=== PATIENT | male | born 1960 | race Caucasian/White ===

== ENCOUNTER 2016-12-09 10:05 | Emergency (ER) | payer MEDICAID ==
[~2016-12-09] VITALS: Ht 160 cm; Wt 72.6 kg
--- NOTE | 2016-12-09 10:07 | NUR ---
PT BIB FROM THE STREETS TO ER BED 12. C/O SCROTAL PAIN. APPEARS SWOLLEN. STATES HX OF HERNIA. STATES BEEN HURTING X 2 YEARS. AWAITING MD TSAI.
--- NOTE | 2016-12-09 10:22 | NUR ---
dr case at bedside for eval.
--- NOTE | 2016-12-09 10:32 | NUR ---
u/s tech at bedside for scrotal ultrasound.
[2016-12-09 11:04] LABS: BASOPHILS # (AUTO) 0.1 /CMM (0.0-0.2); BASOPHILS % (AUTO) 1.6 % (0.0-2.0); EOSINOPHILS # (AUTO) 0.1 /CMM (0.0-0.7); EOSINOPHILS % (AUTO) 1.3 % (0.0-6.0); HEMATOCRIT 31 % (39-51); HEMOGLOBIN 10.2 g/dL (13.5-17.5); LYMPHOCYTES # (AUTO) 1.3 /CMM (0.8-4.8); LYMPHOCYTES % (AUTO) 31.4 % (20.0-44.0); MEAN CORPUSCULAR HEMOGLOBIN 27 PG (26.0-33.0); MEAN CORPUSCULAR HGB CONC 33 g/dl (31.0-36.0); MEAN CORPUSCULAR VOLUME 80 fL (80-96); MONOCYTES # (AUTO) 0.2 /CMM (0.1-1.30); MONOCYTES % (AUTO) 5.8 % (2.0-12.0); NEUTROPHILS # (AUTO) 2.4 /CMM (1.8-8.9); NEUTROPHILS % (AUTO) 59.9 % (43.0-81.0); PLATELET COUNT (AUTO) 118 /CMM (150-450); RDW COEFFICIENT OF VARIATION 23.2 (11.5-15.0); RED BLOOD CELL COUNT(AUTO) 3.83 MIL/uL (4.5-6.0); WHITE BLOOD COUNT (AUTO) 4.1 K/uL (4.3-11.0)
[2016-12-09 11:14] LABS: CALCIUM, SERUM 7.2 mg/dL (8.5-10.1); CREATININE 0.7 mg/dL (0.6-1.3); POTASSIUM 3.9 mmol/L (3.5-5.1)
[2016-12-09] MEDS ORDERED: INSULIN REGULAR, HUMAN 100 UNIT/ML 10 ML VIAL ONE (11:54)
--- NOTE | 2016-12-09 11:59 | NUR ---
REGULAR INSULIN DOSE VERIFIED WITH KAUSHAL SALDIVAR
[2016-12-09] MEDS ORDERED: INSULIN REGULAR, HUMAN 100 UNIT/ML 10 ML VIAL SQ ONE (12:00)
--- NOTE | 2016-12-09 12:08 | NUR ---
DPatient discharged to home in stable condition. Written and verbal after care instructions given. Patient verbalizes understanding of instruction. AMBULATORY WITH STEADY GAIT.
[2016-12-09 12:09] VITALS: BP 142/102
== END 2016-12-09 12:09 | disposition home or self-care (01) ==
LOC: ER 10:07
DX: N50.82 Scrotal pain (principal); I10 Essential (primary) hypertension; E11.9 Type 2 diabetes mellitus without complications; N40.0 Benign prostatic hyperplasia without lower urinary tract symptoms
CPT/HCPCS: 36415; 76870; 80048; 82962; 85025; 96372; 99285; A4606; J1815; Z7610

== ENCOUNTER 2017-09-08 13:56 | Emergency (ER) | payer MEDICAID ==
[~2017-09-08] VITALS: Ht 170.2 cm; Wt 77.1 kg
--- NOTE | 2017-09-08 14:00 | NUR ---
BBRA FROM THE STREET FOR ABDOMINAL PAIN, NAD NOTED, VSS, RESP EVEN AND UNLABORED, WAITING FOR MD TSAI.
[2017-09-08 14:41] LABS: BASOPHILS # (AUTO) 0.1 /CMM (0.0-0.2); BASOPHILS % (AUTO) 1.2 % (0.0-2.0); EOSINOPHILS # (AUTO) 0.1 /CMM (0.0-0.7); EOSINOPHILS % (AUTO) 1.4 % (0.0-6.0); HEMATOCRIT 34 % (39-51); HEMOGLOBIN 11.2 g/dL (13.5-17.5); LYMPHOCYTES # (AUTO) 0.6 /CMM (0.8-4.8); LYMPHOCYTES % (AUTO) 15.1 % (20.0-44.0); MEAN CORPUSCULAR HEMOGLOBIN 27 PG (26.0-33.0); MEAN CORPUSCULAR HGB CONC 33 g/dl (31.0-36.0); MEAN CORPUSCULAR VOLUME 82 fL (80-96); MONOCYTES # (AUTO) 0.3 /CMM (0.1-1.30); MONOCYTES % (AUTO) 6.2 % (2.0-12.0); NEUTROPHILS # (AUTO) 3.1 /CMM (1.8-8.9); NEUTROPHILS % (AUTO) 76.1 % (43.0-81.0); PLATELET COUNT (AUTO) 94 /CMM (150-450); RDW COEFFICIENT OF VARIATION 19.9 (11.5-15.0); RED BLOOD CELL COUNT(AUTO) 4.12 MIL/uL (4.5-6.0); WHITE BLOOD COUNT (AUTO) 4.2 K/uL (4.3-11.0)
[2017-09-08 14:54] LABS: INR 1.18 (0.87-1.13); PROTHROMBIN TIME 12.3 SECS (9.5-12.7)
[2017-09-08 14:55] LABS: CALCIUM, SERUM 7.2 mg/dL (8.5-10.1); CREATININE 0.8 mg/dL (0.6-1.3)
[2017-09-08 14:56] LABS: ALBUMIN 1.9 g/dL (3.4-5.0)
[2017-09-08 14:58] LABS: BILIRUBIN,TOTAL 1.6 mg/dL (0.2-1.0)
[2017-09-08 15:14] LABS: BILIRUBIN,DIRECT 0.9 mg/dL (0.0-0.2)
[2017-09-08 15:15] LABS: TOTAL PROTEIN, SERUM 7.3 g/dL (6.4-8.2)
[2017-09-08 15:19] LABS: LYMPHOCYTES % (MANUAL) 10 % (16-48); MONOCYTES % (MANUAL) 8 % (0-11.0); NEUTROPHILS % (MANUAL) 82 (42-76)
--- NOTE | 2017-09-08 16:29 | NUR ---
ISABEL received a call from SAMINA Gomez requesting a social service consult for homelessness. SW met with pt. bedside. Pt. was resting in bed during the assessment. SW gave pt. list of winter shelters along with other homeless resources. Pt. was appreciative. No other social service needs are required at this time.
[2017-09-08 16:56] VITALS: BP 140/78
== END 2017-09-08 16:58 | disposition home or self-care (01) ==
LOC: ER 13:59
DX: R18.8 Other ascites (principal); D61.818 Other pancytopenia; F10.129 Alcohol abuse with intoxication, unspecified; I10 Essential (primary) hypertension; N40.0 Benign prostatic hyperplasia without lower urinary tract symptoms; E10.9 Type 1 diabetes mellitus without complications; Z91.14 Patient's other noncompliance with medication regimen
CPT/HCPCS: 36415; 49083; 80048; 80076; 83690; 85025; 85730; 99285; A4606; G0480; Z7610; 76942-TC

== ENCOUNTER 2017-12-22 13:47 | Inpatient (IN) | payer MEDICAID ==
[~2017-12-22] VITALS: Ht 165.1 cm; Wt 68.0 kg
--- NOTE | 2017-12-22 13:50 | NUR ---
BBIBRA FROM HOME DT ABDOMINAL DISCOMFORT, 8, NON RADIATING, PATIENT'S ABDOMEN NOTED DISTENDED AND TENDERED. PATIENT IS AWAKE AND ALERT. NO NAUSEA NOR VOMITTING. SKIN IS WARM TO TOUCHA AND NON DIAPHORETIC. PATIENT IS AFEBRILE. VSS
[2017-12-22 14:13] LABS: BASOPHILS % (AUTO) 0.1 % (0.0-2.0); HEMATOCRIT 31 % (39-51); HEMOGLOBIN 10.3 g/dL (13.5-17.5); LYMPHOCYTES # (AUTO) 0.4 /CMM (0.8-4.8); LYMPHOCYTES % (AUTO) 4.4 % (20.0-44.0); MEAN CORPUSCULAR HGB CONC 34 g/dl (31.0-36.0); MEAN CORPUSCULAR VOLUME 83 fL (80-96); MONOCYTES # (AUTO) 0.6 /CMM (0.1-1.30); MONOCYTES % (AUTO) 7.1 % (2.0-12.0); NEUTROPHILS # (AUTO) 7.4 /CMM (1.8-8.9); NEUTROPHILS % (AUTO) 88.4 % (43.0-81.0); PLATELET COUNT (AUTO) 67 /CMM (150-450); RDW COEFFICIENT OF VARIATION 21.1 (11.5-15.0); WHITE BLOOD COUNT (AUTO) 8.4 K/uL (4.3-11.0)
[2017-12-22 14:20] LABS: CARBON DIOXIDE 28 mmol/L (21-32); CHLORIDE 101 mmol/L (98-107); CREATININE 1.2 mg/dL (0.6-1.3); GLUCOSE 199 mg/dL (74-106); POTASSIUM 3.9 mmol/L (3.5-5.1); SODIUM SERUM 136 mmol/L (136-145); UREA NITROGEN, BLOOD 18 mg/dL (7-18)
[2017-12-22 14:24] LABS: INR 1.28 (0.85-1.15)
[2017-12-22 14:26] LABS: ALANINE AMINOTRANSFERASE 38 U/L (12-78); ALBUMIN 2.1 g/dL (3.4-5.0); ALKALINE PHOSPHATASE 355 U/L (46-116); ASPARTATE AMINOTRANSFERASE 70 U/L (15-37); BILIRUBIN,DIRECT 1.2 mg/dL (0.0-0.2); BILIRUBIN,TOTAL 2.7 mg/dL (0.2-1.0); TOTAL PROTEIN, SERUM 7.9 g/dL (6.4-8.2)
[2017-12-22 14:26] LABS: APPEARANCE,URINE Slightly Cloudy (CLEAR); BILIRUBIN,URINE LARGE (NEGATIVE); BLOOD, URINE Large Ery/uL (NEGATIVE); COLOR,URINE Amber (YELLOW); KETONES,URINE 15 (NEGATIVE); LEUKOCYTE ESTERASE ,URINE Negative (NEGATIVE); NITRITE, URINE Negative (NEGATIVE); PROTEIN,URINE >=300 mg/dl (NEGATIVE); UGLUCOSE 100 MG/DL mg/dL (NEGATIVE); UROBILINOGEN,URINE >=8.0 EU/dL (0.2)
[2017-12-22 14:27] LABS: ALCOHOL, BLOOD < 3 mg/dL (0-0)
[2017-12-22 14:38] LABS: SERUM AMMONIA 50 umol/L (11-32)
[2017-12-22 14:38] LABS: BACTERIA,URINE Few /HPF (None Seen); RBC,URINE 21-50 /HPF (0-2); SQUAMOUS EPITHELIAL CELL,UR Few /HPF (None Seen); WBC,URINE 0-2 /HPF (0-3)
[2017-12-22 14:51] LABS: BAND % (MANUAL) 9 % (0.0-5.0); LYMPHOCYTES % (MANUAL) 4 % (16-48); METAMYELOCYTES % 1 % (0-0); MONOCYTES % (MANUAL) 6 % (0-11.0); NEUTROPHILS % (MANUAL) 80 (42-76)
[2017-12-22] MEDS ORDERED: ACETAMINOPHEN 325 MG TABLET ONE (14:54)
[2017-12-22] MEDS ORDERED: ACETAMINOPHEN 650 MG/20.3 ML UDC PO ONE (15:00)
--- NOTE | 2017-12-22 15:02 | NUR ---
NOTIFIED ER DR. SCHMIDT NO RADIOLOGIST ON SITE, RADIOLOGIST HAS LEFT TO [facility] FOR OTHER PENDING PROCEDURES
[2017-12-22 15:22] LABS: TROPONIN I < 0.017 ng/mL (0.00-0.056)
[2017-12-22] MEDS ORDERED: METF-440 PO (16:00)
[2017-12-22] MEDS ORDERED: GLIP5TAB13 PO (16:00)
[2017-12-22] MEDS ORDERED: INSU100V7 SQ (16:00)
--- NOTE | 2017-12-22 16:00 | NUR ---
PAGED ULTRASOUND STATED THEY ALREADY KNOW OF ORDERS
--- NOTE | 2017-12-22 16:05 | NUR ---
AND TIMBER SIZER OPERATOR BEDSIDE FOR PARACENTESIS.
--- NOTE | 2017-12-22 16:13 | NUR ---
Patient is resting comfortably in bed with eyes closed. Easily aroused. VSS
--- NOTE | 2017-12-22 16:24 | NUR ---
ABDOMINAL PARACENTESIS FLUID COLLECTED AND CALLED LAB FOR PICKUP
[2017-12-22] MEDS ORDERED: CEFEPIME 1 GM in IV D5W 50 ML IV ONE (16:30)
[2017-12-22] MEDS ORDERED: VANCOMYCIN 1 GM in IV D5W 250 ML IV ONE (16:30)
--- NOTE | 2017-12-22 16:30 | NUR ---
LAB STATES STILL RUNNING LACTIC TEST
--- NOTE | 2017-12-22 16:37 | NUR ---
CALLED [facility]
[2017-12-22] MEDS ORDERED: CEFEPIME 1 GM VIAL ONE (16:45)
[2017-12-22] MEDS ORDERED: VANCOMYCIN 1 GM VIAL ONE (16:45)
--- NOTE | 2017-12-22 17:00 | NUR ---
PARACENTESIS PERFORMED BY . 1000ML OF FLUIDS WERE REMOVED FROM THE ABD CAVITY. MD MADE AWARE. PARACENTESIS DC'ED PER MD'S ORDERS. NO S/S OF DISCOMOFRT NOTED IN PT.
--- NOTE | 2017-12-22 17:13 | NUR ---
ADMIT TO BED 313-1
[2017-12-22] MEDS ORDERED: IV NS 0.9% 1,000 ML BAG IV ONE (17:30)
--- NOTE | 2017-12-22 17:37 | NUR ---
Janusz addison in [facility] - 12/22/17 at 1738 by CHRISTI REPORT GIVEN TO MIL MCNAMARA FOR JESUS. PT GOING TO ROOM 311-1
--- NOTE | 2017-12-22 17:39 | NUR ---
REPORT GIVEN TO FOOD INSPECTOR LEA FOR JESUS. PT GOING TO ROOM 311-1
--- NOTE | 2017-12-22 19:32 | NUR ---
WIRELINE FIELD OPERATOR OPENING NOTES RECEIVED BEDSIDE ENDORSEMENT FROM DAY SHIFT NURSE. PT IS SITTING UPRIGHT, AWAKE AND RESPONSIVE.RESPIRATIONS ARE EVEN AND UNLABORED, NOT IN ANY ACUTE DISTRESS NOTED. DENIES ANY PAIN AT THIS TIME. IV SITE INTACT, NO INFILTRATION NOTED. DRESSING KEPT CLEAN AND DRY. SAFETY MEASURES ARE IN PLACE. INSTRUCTED PT TO USE CALL LIGHT WHEN ASSISTANCE IS NEEDED, CALL LIGHT IS LEFT WITHIN REACH. WILL CONTINUE TO MONITOR THROUGHOUT SHIFT.
[2017-12-22 20:00] VITALS: BP 117/76
[2017-12-22] MEDS ORDERED: ACETAMINOPHEN 325 MG TABLET PO PRN (22:30)
[2017-12-22] MEDS ORDERED: ZOLPIDEM TARTRATE 5 MG TABLET PO PRN (22:30)
[2017-12-22] MEDS ORDERED: ONDANSETRON HCL/PF 4 MG/2 ML VIAL IVP PRN (22:30)
[2017-12-22] MEDS ORDERED: HYDROCODONE/APAP 5/325MG 1 EACH TABLET PO PRN (22:30)
[2017-12-22] MEDS ORDERED: MAGNESIUM HYDROXIDE 30 ML UDC PO PRN (22:30)
[2017-12-22] MEDS ORDERED: DEXTROSE 50%-WATER 50 ML DISP.SYRIN IV PRN (22:30)
[2017-12-22] MEDS ORDERED: PIPERACILLIN /TAZOBACTAM 3.375 G VIAL IV ONE (22:57)
[2017-12-22] MEDS: PIPERACILLIN /TAZOBACTAM 3.375 G in IV D5W 100 ML IV SCH (23:04)
[2017-12-23] VITALS: BP 120/88
[2017-12-23] MEDS ORDERED: VANCOMYCIN 1 GM VIAL ONE (00:37)
[2017-12-23] MEDS ORDERED: VANCOMYCIN 1 GM in IV D5W 250 ML IV ONE (01:00)
[2017-12-23 04:00] VITALS: BP 119/73
[2017-12-23] MEDS ORDERED: PIPERACILLIN /TAZOBACTAM 3.375 G VIAL IV ONE (05:27)
[2017-12-23] MEDS: PIPERACILLIN /TAZOBACTAM 3.375 G in IV D5W 100 ML IV SCH (05:42)
[2017-12-23] MEDS: BLOOD SUGAR DIAGNOSTIC 1 EACH STRIP IN SCH ×4 (06:40→21:43)
[2017-12-23] MEDS: INSULIN REGULAR, HUMAN 100 UNIT/ML 3 ML VIAL SQ PRN ×4 (06:40→21:44)
--- NOTE | 2017-12-23 06:49 | NUR ---
TRAINING INTERN CLOSING NOTES ALL DUE MEDS GIVEN, NEEDS MET AND RENDERED. AWAKE AND RESPONSIVE. RESPIRATIONS ARE EVEN AND UNLABORED, NOT IN ANY ACUTE DISTRESS NOTED. DENIES ANY PAIN AT THIS TIME. NO C/O SOB, N/V. IV SITE INTACT, NO INFILTRATION NOTED. DRESSING KEPT CLEAN AND DRY. SAFETY MEASURES ARE IN PLACE. REMINDED PT TO USE CALL LIGHT WHEN ASSISTANCE IS NEEDED, CALL LIGHT IS LEFT WITHIN REACH. WILL ENDORSE TO NEXT SHIFT FOR CONTINUITY OF CARE.
[2017-12-23 07:43] LABS: CALCIUM, SERUM 6.7 mg/dL (8.5-10.1); CREATININE 0.8 mg/dL (0.6-1.3); MAGNESIUM 1.4 mg/dL (1.8-2.4); PHOSPHORUS 3.6 mg/dL (2.5-4.9); POTASSIUM 3.4 mmol/L (3.5-5.1)
--- NOTE | 2017-12-23 07:58 | NUR ---
DOCUMENTED PREVIOUS SHIFT'S MEDICATIONS NON-ADMINISTERED TO RID OF RED PASSED DUE REMINDERS.
--- NOTE | 2017-12-23 07:59 | NUR ---
HEMODIALYSIS RN OPENING NOTE RECEIVED BEDSIDE SBAR REPORT OF ON THE PATIENT. PATIENT IS A/O X4, ASLEEP EASILY AWAKEN IN BED. CHEST IS RISING EQUALLY, BILATERALLY. DENIES ANY PAIN AT THIS TIME. NO C/O SOB, N/V. IV SITE INTACT, NO INFILTRATION NOTED. ABDOMINAL DRESSING CLEAN AND DRY. PATIENT IS IN BED. BED IS LOCKED IN LOWEST POSITION, SIDE RAILS UP X3, BED ALARM IS ON. CALL LIGHT WITHIN REACH. PATIENT EDUCATED TO CALL FOR ASSISTANCE USING THE CALL LIGHT AND VERBALIZED UNDERSTANDING. WILL CONTINUE TO ASSESS/MONITOR THROUGHOUT THE SHIFT.
[2017-12-23 08:00] VITALS: BP 114/77
[2017-12-23] MEDS ORDERED: FEE PK DOSING 1 MIN EA MC ONE (09:14)
[2017-12-23] MEDS: VANCOMYCIN 1 GM in IV D5W 250 ML IV SCH ×2 (09:55→16:55)
--- NOTE | 2017-12-23 10:15 | NUR ---
RIGHT FOREARM GAUGE 22 PERIPHERAL IV CATHETER STARTED FOR MAGNESIUM ADMINISTRATION. PATIENT TOLERATED PROCEDURE WELL.
[2017-12-23] MEDS: Magnesium 1GM/D5W 100ML PREMIX 100 ML IV SCH ×4 (10:58→15:16)
[2017-12-23] MEDS ORDERED: POTASSIUM CHLORIDE 20 MEQ TAB.PRT.SR PO SCH ×2 (11:00→11:30)
[2017-12-23] MEDS: PIPERACILLIN /TAZOBACTAM 4.5 G in IV D5W 50 ML IV SCH ×2 (12:47→18:40)
[2017-12-23] MEDS: Z GUARD REMEDY 2 OZ OINT TP PRN (13:02)
[2017-12-23 13:56] LABS: BASOPHILS % (AUTO) 0.5 % (0.0-2.0); EOSINOPHILS % (AUTO) 1.1 % (0.0-6.0); HEMATOCRIT 27 % (39-51); LYMPHOCYTES # (AUTO) 0.7 /CMM (0.8-4.8); LYMPHOCYTES % (AUTO) 14.7 % (20.0-44.0); MEAN CORPUSCULAR HGB CONC 33 g/dl (31.0-36.0); MEAN CORPUSCULAR VOLUME 84 fL (80-96); MONOCYTES # (AUTO) 0.4 /CMM (0.1-1.30); MONOCYTES % (AUTO) 9.4 % (2.0-12.0); NEUTROPHILS # (AUTO) 3.4 /CMM (1.8-8.9); NEUTROPHILS % (AUTO) 74.3 % (43.0-81.0); RDW COEFFICIENT OF VARIATION 20.9 (11.5-15.0); RED BLOOD CELL COUNT(AUTO) 3.28 MIL/uL (4.5-6.0); WHITE BLOOD COUNT (AUTO) 4.5 K/uL (4.3-11.0)
[2017-12-23 14:14] LABS: PLATELET COUNT (AUTO) 45 /CMM (150-450)
[2017-12-23 14:17] LABS: EOSINOPHILS % (MANUAL) 2 % (0-4); LYMPHOCYTES % (MANUAL) 12 % (16-48); MONOCYTES % (MANUAL) 7 % (0-11.0); NEUTROPHILS % (MANUAL) 79 (42-76)
--- NOTE | 2017-12-23 15:00 | NUR ---
Ha BARRAZA INFORMED OF CRITICALLY LOW PLATELET NUMBER OF 45. NO NEW ORDERS RECEIVED.
[2017-12-23 16:00] VITALS: BP 134/60
--- NOTE | 2017-12-23 17:01 | NUR ---
ABDOMINAL DRESSING CHANGED. OLD DRESSING SATURATED IN CLEAR, YELLOW FLUID. PATIENT TOLERATED PROCEDURE WELL.
[2017-12-23] MEDS: PANTOPRAZOLE 40 MG VIAL IV SCH (18:40)
[2017-12-23 18:53] LABS: IRON, SERUM 19 ug/dl (50-175); TOTAL IRON BINDING CAPACITY 195 ug/dl (250-450)
--- NOTE | 2017-12-23 19:11 | NUR ---
PRIME BROKER OPENING NOTES RECEIVED BEDSIDE ENDORSEMENT FROM DIRECTOR OF EXHIBIT DEVELOPMENT NURSE. PATIENT IS A/O X3, AWAKE AND RESPONSIVE.RESPIRATIONS ARE EVEN AND UNLABORED, NOT IN ANY ACUTE DISTRESS NOTED. DENIES ANY PAIN AT THIS TIME. IV SITE INTACT, NO INFILTRATION NOTED. DRESSING KEPT CLEAN AND DRY. SAFETY MEASURES ARE IN PLACE. INSTRUCTED PT TO USE CALL LIGHT WHEN ASSISTANCE IS NEEDED, CALL LIGHT IS LEFT WITHIN REACH. WILL CONTINUE TO MONITOR THROUGHOUT SHIFT.
--- NOTE | 2017-12-23 19:12 | NUR ---
MS RN CLOSING NOTE NO SIGNIFICANT CHANGES THROUGHOUT THE SHIFT. DENIES PAIN DISCOMFORT AT THIS TIME. PATIENT IS IN BED, AWAKE AND RESPONSIVE WATCHING TV. BED IS LOCKED IN LOWEST POSITION, SIDE RAILS UP X2. CALL LIGHT WITHIN REACH. WILL ENDORSE TO THE MACHINE STITCHER NURSE FOR JESUS.
--- NOTE | 2017-12-23 19:15 | NUR ---
RN OPENING NOTES RECEIVED PT AWAKE IN BED, ALERT AND ORIENTED X 3, VERBALLY RESPONSIVE, IN NO ACUTE DISTRESS, NO SOB, BREATHING EVEN AND UNLABORED, DENIES ANY PAIN. ALL PATIENT'S NEEDS ATTENDED TO AT THIS TIME, PLACED BED IN LOW POSITION AND LOCKED IN PLACE. CALL LIGHT PLACED WITHIN EASY REACH. WILL CONTINUE TO MONITOR.
[2017-12-23 20:00] VITALS: BP 121/83
[2017-12-23] MEDS: LEVOFLOXACIN (500MG) 500 MG TABLET PO SCH (21:08)
[2017-12-24] MEDS: PIPERACILLIN /TAZOBACTAM 4.5 G in IV D5W 50 ML IV SCH ×4 (00:05→17:24)
[2017-12-24] MEDS: VANCOMYCIN 1 GM in IV D5W 250 ML IV SCH ×2 (01:37→09:03)
[2017-12-24] MEDS: BLOOD SUGAR DIAGNOSTIC 1 EACH STRIP IN SCH ×4 (06:09→21:52)
[2017-12-24] MEDS: INSULIN REGULAR, HUMAN 100 UNIT/ML 3 ML VIAL SQ PRN ×4 (06:11→21:56)
--- NOTE | 2017-12-24 06:56 | NUR ---
RN CLOSING NOTES PATIENT ASLEEP IN BED BUT EASILY AROUSABLE, NOTED WITH NO SOB, IN NO ACUTE DISTRESS, KEPT PT SAFE AND DRY, CLEAN AND COMFORTABLE THROUGHOUT THE SHIFT. PLACED BED IN LOW POSITION AND LOCKED IN PLACE. CALL LIGHT PLACED WITHIN EASY REACH. WILL ENDORSE TO AM SHIFT NURSE FOR CONTINUITY OF CARE.
--- NOTE | 2017-12-24 07:04 | NUR ---
PATIENT PULLED THE IV CATHETER. NEW 22 G IV CATHETER PLACED IN THE LEFT HAND. TOLERATED PROCEDURE WELL.
[2017-12-24 08:00] VITALS: BP 116/82
[2017-12-24 08:44] LABS: CALCIUM, SERUM 6.9 mg/dL (8.5-10.1); POTASSIUM 3.7 mmol/L (3.5-5.1)
[2017-12-24] MEDS: LACTULOSE 10 G/15 ML UDC (PYXIS) PO SCH ×2 (09:03→17:36)
[2017-12-24] MEDS: Z GUARD REMEDY 2 OZ OINT TP PRN (12:30)
--- NOTE | 2017-12-24 13:12 | NUR ---
DR SOUTH AT THE BEDSIDE. REPORTED CRITICALLY LOW PLATELET LEVELS. NO NEW ORDERS RECEIVED AT THIS TIME.
[2017-12-24 13:47] LABS: BASOPHILS % (AUTO) 0.9 % (0.0-2.0); EOSINOPHILS % (AUTO) 2.1 % (0.0-6.0); HEMATOCRIT 27 % (39-51); HEMOGLOBIN 8.9 g/dL (13.5-17.5); LYMPHOCYTES # (AUTO) 0.7 /CMM (0.8-4.8); LYMPHOCYTES % (AUTO) 17.5 % (20.0-44.0); MEAN CORPUSCULAR HGB CONC 33 g/dl (31.0-36.0); MEAN CORPUSCULAR VOLUME 84 fL (80-96); MONOCYTES # (AUTO) 0.6 /CMM (0.1-1.30); MONOCYTES % (AUTO) 15.3 % (2.0-12.0); NEUTROPHILS # (AUTO) 2.5 /CMM (1.8-8.9); NEUTROPHILS % (AUTO) 64.2 % (43.0-81.0); RDW COEFFICIENT OF VARIATION 20.8 (11.5-15.0); RED BLOOD CELL COUNT(AUTO) 3.25 MIL/uL (4.5-6.0)
--- NOTE | 2017-12-24 13:49 | NUR ---
attempted to contact patients nurse who is on break in regards to us guided paracentesis. will re-attempt to contact nurse
[2017-12-24 13:54] LABS: PLATELET COUNT (AUTO) 42 /CMM (150-450)
--- NOTE | 2017-12-24 14:19 | NUR ---
INFORMED YARIEL JEROME, RADIOLOGIST NOT ON SITE WILL RETURN TOMORROW. AT THIS TIME CONSENT IS NOT SIGNED AND PLATELET COUNT IS LOW. MUST GET THE FOLLOWING IN ORDER TO PERFORM PARACENTESIS
[2017-12-24 14:22] LABS: EOSINOPHILS % (MANUAL) 1 % (0-4); LYMPHOCYTES % (MANUAL) 15 % (16-48); MONOCYTES % (MANUAL) 9 % (0-11.0); NEUTROPHILS % (MANUAL) 75 (42-76)
--- NOTE | 2017-12-24 14:22 | NUR ---
SPOKE TO DEREK GUPTA. REPORTED PATIENT'S PLATELETS ARE CRITICALLY LOW. DEREK STATED SHE WILL ORDER PLATELETS TO BE ADMINISTERED EARLY IN THE AM BEFORE PARACENTESES
[2017-12-24] MEDS ORDERED: ALBUMIN 25% 12.5 GM/50 ML BOTTLE IV ONE (14:30)
[2017-12-24] MEDS ORDERED: ALBUMIN 25% 25 GM in PREMIX 1 EA IV SCH (15:00)
[2017-12-24 16:00] VITALS: BP 119/84
[2017-12-24] MEDS ORDERED: VANCOMYCIN 0.75 GM in IV D5W 250 ML IV SCH (17:00)
[2017-12-24] MEDS: PANTOPRAZOLE 40 MG VIAL IV SCH (17:27)
--- NOTE | 2017-12-24 19:30 | NUR ---
MS RN Opening Notes Received pt in bed watching tv with HOB elevated. alert, awake and responsive. respirations are even and unlabored, not in any acute distress noted. denies any pain at this time. iv intact, no infiltration noted. dressing kept clean and dry. pt able to make needs known. safety measures are in place. bed is in its low and locked position. instructed pt to use call light when assistance is needed, call light is left within reach. will continue to monitor throughout shift.
--- NOTE | 2017-12-24 19:50 | NUR ---
MS RN Notes Collected stool speciment for OB. called lab for pick pulling machine tender. changed dressing to abdomen, tolerated well.
--- NOTE | 2017-12-24 19:55 | NUR ---
MS RN CLOSING NOTE NO SIGNIFICANT CHANGES THROUGHOUT THE SHIFT. DENIES PAIN DISCOMFORT AT THIS TIME. PATIENT IS IN BED, AWAKE AND RESPONSIVE WATCHING TV. BED IS LOCKED IN LOWEST POSITION, SIDE RAILS UP X2. CALL LIGHT WITHIN REACH. CONSENT FOR BLOOD AND PROCEDURE SIGNED IN THE CHART. ABDOMINAL DRESSING CHANGED. ALL NEEDS ARE MET. ENDORSED TO THE SENIOR SOFTWARE TESTER NURSE FOR JESUS.
[2017-12-24 20:00] VITALS: BP 136/80
[2017-12-24 20:36] LABS: OCCULT BLOOD STOOL POSITIVE (NEGATIVE)
[2017-12-24] MEDS: LEVOFLOXACIN (500MG) 500 MG TABLET PO SCH (21:52)
--- NOTE | 2017-12-24 23:02 | NUR ---
MS RN NOTES RELAYED STOOL OB RESULTS TO KRYSTINA GUPTA W/ NO NEW ORDERS. PT MADE AWARE. NO ACTIVE BLEEDING AT THIS TIME. WILL CONTINUE TO MONITOR.
--- NOTE | 2017-12-24 23:30 | NUR ---
MS RN NOTES PER CHARGE NURSE, SHE CALLED RADIOLOGY AND LEFT A MESSAGE RE: SCHEDULED TIME FOR PARACENTESIS. AWAITING A CALL BACK.
[2017-12-25] MEDS: PIPERACILLIN /TAZOBACTAM 4.5 G in IV D5W 50 ML IV SCH ×4 (00:37→17:31)
--- NOTE | 2017-12-25 06:05 | NUR ---
MS RN NOTES CALLED RADIOLOGY RE: SCHEDULED PARACENTESIS. PER TECH, THEY WONT KNOW THE SCHEDULE TILL 8AM. CHARGE NURSE MADE AWARE.
--- NOTE | 2017-12-25 06:25 | NUR ---
MS RN CLOSING NOTES NEEDS MET AND RENDERED. AWAKE AND RESPONSIVE, AFEBRILE. RESPIRATIONS ARE EVEN AND UNLABORED, NOT IN ANY ACUTE DISTRESS NOTED. DENIES ANY PAIN AT THIS TIME. IV SITE TO LFA/RFA INTACT, NO INFILTRATION NOTED. DRESSING KEPT CLEAN AND DRY. SAFETY MEASURES ARE IN PLACE. REMINDED PT TO USE CALL LIGHT WHEN ASSISTANCE IS NEEDED, CALL LIGHT IS LEFT WITHIN REACH. WILL ENDORSE TO NEXT SHIFT FOR CONTINUITY OF CARE.
[2017-12-25] MEDS: BLOOD SUGAR DIAGNOSTIC 1 EACH STRIP IN SCH ×4 (06:34→21:58)
--- NOTE | 2017-12-25 06:43 | NUR ---
MS RN NOTES BS 157. NO INSULIN GIVEN D/T PT BEING NPO. NO S/SX OF HYPO/HYPERGLYCEMIA. WILL CONTINUE TO MONITOR.
[2017-12-25 07:24] LABS: BASOPHILS % (AUTO) 0.5 % (0.0-2.0); HEMATOCRIT 27 % (39-51); HEMOGLOBIN 8.9 g/dL (13.5-17.5); LYMPHOCYTES # (AUTO) 0.7 /CMM (0.8-4.8); LYMPHOCYTES % (AUTO) 16.1 % (20.0-44.0); MEAN CORPUSCULAR HGB CONC 33 g/dl (31.0-36.0); MEAN CORPUSCULAR VOLUME 84 fL (80-96); MONOCYTES # (AUTO) 0.6 /CMM (0.1-1.30); MONOCYTES % (AUTO) 15.1 % (2.0-12.0); NEUTROPHILS # (AUTO) 2.7 /CMM (1.8-8.9); NEUTROPHILS % (AUTO) 66.3 % (43.0-81.0); RED BLOOD CELL COUNT(AUTO) 3.25 MIL/uL (4.5-6.0); WHITE BLOOD COUNT (AUTO) 4.1 K/uL (4.3-11.0)
--- NOTE | 2017-12-25 07:33 | NUR ---
MS RN OPENING NOTES RECEIVED PATIENT IN STABLE CONDITION. IN NO APPARENT DISTRESS. BEDSIDE RAILS ARE UPX2. BED IS LOCKED AND LOWERED. CALL LIGHT IS WITHIN REACH. PATIENT IS RESTING IN BED COMFORTABLY. WILL CONTINUE TO MONITOR.
[2017-12-25 07:44] LABS: PLATELET COUNT (AUTO) 40 /CMM (150-450)
[2017-12-25 07:47] LABS: BILIRUBIN,TOTAL 1.6 mg/dL (0.2-1.0); CALCIUM, SERUM 7.4 mg/dL (8.5-10.1); CREATININE 1.4 mg/dL (0.6-1.3); MAGNESIUM 1.9 mg/dL (1.8-2.4); PHOSPHORUS 4.6 mg/dL (2.5-4.9); POTASSIUM 3.9 mmol/L (3.5-5.1); TOTAL PROTEIN, SERUM 5.7 g/dL (6.4-8.2)
[2017-12-25 08:00] VITALS: BP 111/71
[2017-12-25 08:28] LABS: ALBUMIN 1.4 g/dL (3.4-5.0)
[2017-12-25 09:13] LABS: BAND % (MANUAL) 1 % (0.0-5.0); EOSINOPHILS % (MANUAL) 2 % (0-4); LYMPHOCYTES % (MANUAL) 15 % (16-48); MONOCYTES % (MANUAL) 17 % (0-11.0); NEUTROPHILS % (MANUAL) 65 (42-76)
[2017-12-25] MEDS: LACTULOSE 10 G/15 ML UDC (PYXIS) PO SCH ×2 (10:03→16:03)
[2017-12-25] MEDS: FUROSEMIDE 40 MG TABLET PO SCH (10:04)
[2017-12-25] MEDS: SPIRONOLACTONE 25 MG TABLET PO SCH (10:04)
--- NOTE | 2017-12-25 11:00 | NUR ---
CALLED CLIENT TECHNOLOGIES ANALYST TWICE. NO RESPONSE. PAGED ULTRASOUND AND NO RESPONSE. WILL CONTINUE TO MAKE ATTEMPTS TO REACH ULTRASOUND.
[2017-12-25] MEDS: INSULIN REGULAR, HUMAN 100 UNIT/ML 3 ML VIAL SQ PRN ×2 (11:32→22:06)
[2017-12-25] MEDS: ALBUMIN 25% 25 GM in PREMIX 1 EA IV SCH ×2 (13:50→14:55)
--- NOTE | 2017-12-25 14:32 | NUR ---
Social service consult requested by CANDY Garcia for homelessness. Pt. is a 57 year old male who was admitted to [facility] for abdominal pain and sepsis. ISABEL and ed case manager Hayes met with pt. bedside. Pt. is alert and oriented x 4. Pt. was pleasant during the assessment. Pt. states he has been homeless for about a year. Pt. receives GR in the amount of $250 and Food stamps. Pt. declined long-term placement but is willing to take Homeless resources. ISABEL informed pt. she will give the ed case manager the resources since he might be discharging over the weekend. Pt. will require bus tokens as well. The following Homeless Resources were given to the patient: [employer] [facility] [place] ; [employer] [facility] ; [employer] [facility] . power manager Iram was given list of referrals to give to pt. prior to discharge. No other social service needs are required at this time.
[2017-12-25 16:00] VITALS: BP 120/73
[2017-12-25] MEDS: LACTOBACILLUS RHAMNOSUS GG 1 EACH CAP.SPRINK PO SCH (16:03)
[2017-12-25] MEDS: PANTOPRAZOLE 40 MG VIAL IV SCH (17:32)
--- NOTE | 2017-12-25 18:28 | NUR ---
MS RN CLOSING NOTES PATIENT IS RESTING IN NO APPARENT DISTRESS. BEDSIDE RAILS ARE UPX2. BED IS LOCKED AND LOWERED. CALL LIGHT IS WITHIN REACH. ALL NEEDS WERE MET. IV LINE IS PATENT AND INTACT. WILL ENDORSE CARE TO WORD PROCESSING MACHINE OPERATOR NURSE FOR JESUS. PARACENTESIS DONE TODAY 5.2 LITERS OUT. PARACENTESIS FLUID NOT SENT TO PATHOLOGY. DR ADAMS SOUTH DID NOT NEED TO SEND TO PATHOLOGY.
--- NOTE | 2017-12-25 19:48 | NUR ---
RN OPENING NOTES RECEIVED REPORT FROM DAYSHIFT RN DOUG. FOUND Pt AWAKE IN BED, WATCHING TV. NO S/S OF ACUTE DISTRESS OR SOB NOTED. NO C/O PAIN AT THIS TIME. Pt IS A/OX4, AZERI SPEAKING, VERBAL, ABLE TO MAKE NEEDS KNOWN. IV ACCESS ON RFA #22G, SL. SAFETY MEASURES IN PLACE. BED LOW, LOCKED, HOB ELEVATED, SIDE RAILS UP, CALL LIGHT AND BEDSIDE TABLE WITHIN REACH. WILL CONTINUE TO MONITOR Pt THROUGHOUT THE NIGHT FOR SAFETY.
[2017-12-25 20:00] VITALS: BP 109/68
[2017-12-25] MEDS: CEFTRIAXONE 1 G in IV NS 0.9% 50 ML IV SCH (21:03)
[2017-12-25] MEDS: LEVOFLOXACIN (500MG) 500 MG TABLET PO SCH (21:18)
--- NOTE | 2017-12-25 22:00 | NUR ---
RN NOTES HS ACCUCHECK BG 204. ADMINISTERED 4UN OF INSULIN PER SLIDING SCALE. WAS UNABLE TO COMMENT ON THE GLUCOMETER IN TIME BEFORE IT LOGGED OFF.
[2017-12-26] MEDS: BLOOD SUGAR DIAGNOSTIC 1 EACH STRIP IN SCH ×4 (06:18→21:09)
--- NOTE | 2017-12-26 06:20 | NUR ---
RN NOTES ACCUCHECK BG 99. NO INSULIN COVERAGE NEEDED AT THIS TIME.
[2017-12-26 06:28] LABS: BASOPHILS % (AUTO) 0.6 % (0.0-2.0); EOSINOPHILS % (AUTO) 1.8 % (0.0-6.0); HEMATOCRIT 27 % (39-51); HEMOGLOBIN 8.9 g/dL (13.5-17.5); LYMPHOCYTES # (AUTO) 0.6 /CMM (0.8-4.8); LYMPHOCYTES % (AUTO) 20.1 % (20.0-44.0); MEAN CORPUSCULAR HGB CONC 33 g/dl (31.0-36.0); MEAN CORPUSCULAR VOLUME 83 fL (80-96); MONOCYTES # (AUTO) 0.4 /CMM (0.1-1.30); MONOCYTES % (AUTO) 13.9 % (2.0-12.0); NEUTROPHILS % (AUTO) 63.6 % (43.0-81.0); RDW COEFFICIENT OF VARIATION 20.8 (11.5-15.0); RED BLOOD CELL COUNT(AUTO) 3.28 MIL/uL (4.5-6.0); WHITE BLOOD COUNT (AUTO) 3.2 K/uL (4.3-11.0)
--- NOTE | 2017-12-26 06:45 | NUR ---
RN CLOSING NOTES NO SIGNIFICANT CHANGES IN Pt's CONDITION. NO S/S OF ACUTE DISTRESS OR SOB NOTED DURING THE NIGHT. ALL NEEDS MET AND ATTENDED TO. SAFETY MEASURES IN PLACE. WILL ENDORSE TO DAYSHIFT RN FOR Pt's JESUS.
[2017-12-26 06:46] LABS: PLATELET COUNT (AUTO) 49 /CMM (150-450)
[2017-12-26 06:55] LABS: ALBUMIN 1.9 g/dL (3.4-5.0); BILIRUBIN,TOTAL 1.5 mg/dL (0.2-1.0); CALCIUM, SERUM 7.6 mg/dL (8.5-10.1); CREATININE 1.5 mg/dL (0.6-1.3); MAGNESIUM 1.5 mg/dL (1.8-2.4); POTASSIUM 3.7 mmol/L (3.5-5.1); TOTAL PROTEIN, SERUM 5.9 g/dL (6.4-8.2)
--- NOTE | 2017-12-26 07:47 | NUR ---
MS RN OPENING NOTES RECEIVED PT FROM NIGHTSHIFT NURSE IN STABLE CONDITION. PT IS A/O X3. NO SOB OR SIGNS OF DISTRESS NOTED. BREATHING IS EVEN AND UNLABORED. HE DENIES ANY PAIN AT THIS TIME. IV TO RIGHT FOREARM NOTED TO BE PATENT AND INTACT. REDNESS OR SIGNS OF INFILTRATION NOTED. DRESSING OVER PARACENTESIS POINT OF ENTRY SITE NOTED TO BE CLEAN, DRY, AND INTACT. NO LEAKAGE AT THIS TIME. BED IN LOW LOCKED POSITION, SIDE RAILS UP X2, CALL LIGHT WITHIN REACH. WILL CONTINUE TO MONITOR.
[2017-12-26 07:48] LABS: LYMPHOCYTES % (MANUAL) 21 % (16-48); MONOCYTES % (MANUAL) 13 % (0-11.0); NEUTROPHILS % (MANUAL) 66 (42-76)
[2017-12-26 08:00] VITALS: BP 107/73
--- NOTE | 2017-12-26 08:26 | NUR ---
CRITICAL LAB OBEY THE FOUNTAIN SERVER MADE AWARE OF PT'S CRITICAL PLATELET COUNT. PER OBEY "THE LOW VALUE IS A RESULT OF THE DISEASE PROCESS. THE PT'S IS NOT BLEEDING AND THEREFORE DOES NOT NEED ANY TRANSFUSIONS AT THIS TIME". WILL CONTINUE TO MONITOR FOR ANY SIGNS OF BLEEDING
[2017-12-26] MEDS: LACTULOSE 10 G/15 ML UDC (PYXIS) PO SCH ×2 (08:43→17:36)
[2017-12-26] MEDS: LACTOBACILLUS RHAMNOSUS GG 1 EACH CAP.SPRINK PO SCH ×2 (08:43→17:36)
[2017-12-26] MEDS: FUROSEMIDE 40 MG TABLET PO SCH (08:43)
[2017-12-26] MEDS ORDERED: MAGNESIUM OXIDE 400 MG TABLET PO ONE (09:00)
[2017-12-26] MEDS: SPIRONOLACTONE 25 MG TABLET PO SCH (09:00)
[2017-12-26] MEDS: INSULIN REGULAR, HUMAN 100 UNIT/ML 3 ML VIAL SQ PRN ×2 (12:08→21:11)
[2017-12-26] MEDS: SOD FERRIC GLUC 125 MG in IV NS 0.9% 100 ML IV SCH (14:20)
[2017-12-26 16:00] VITALS: BP_SYST 107; BP_SYST 98; BP_DIAS 62; BP_DIAS 73
[2017-12-26] MEDS: PANTOPRAZOLE 40 MG VIAL IV SCH (17:36)
--- NOTE | 2017-12-26 18:37 | NUR ---
MS RN CLOSING NOTES PT REMAIN STABLE. ALL NEEDS WERE MET DURING SHIFT AND ORDERS CARRIED OUT ACCORDINGLY. ALL DUE MEDS GIVEN. IV REMAINS PATENT AND INTACT. VITALS REMAINED STABLE. WILL ENDORSE TO NIGHTSHIFT NURSE FOR JESUS
--- NOTE | 2017-12-26 19:35 | NUR ---
MS RN NOTE RECEIVED PATIENT FROM DAY SHIFT, PATIENT IS ALERT AND ORIENTEDX4, DENIES RESPIRATORY DISTRESS OR PAIN AT THIS TIME. IV ON RIGHT FA IS PATENT AND INTACT, SL ONLY. SRX2, BED IN LOW POSITION, CALL LIGHT WITHIN REACH, WILL CONTINUE TO MONITOR PATIENT.
[2017-12-26 20:00] VITALS: BP 101/74
[2017-12-26] MEDS: CEFTRIAXONE 1 G in IV NS 0.9% 50 ML IV SCH (20:05)
[2017-12-26] MEDS: LEVOFLOXACIN (500MG) 500 MG TABLET PO SCH (21:06)
[2017-12-27] MEDS: BLOOD SUGAR DIAGNOSTIC 1 EACH STRIP IN SCH ×4 (05:27→21:14)
[2017-12-27] MEDS: INSULIN REGULAR, HUMAN 100 UNIT/ML 3 ML VIAL SQ PRN ×3 (05:29→21:18)
--- NOTE | 2017-12-27 06:51 | NUR ---
MS RN NOTE PATIENT IS RESTING IN BED COMFORTABLY, NO ACUTE EVENT NOTED THROUGHOUT THE SHIFT. ALL DUE MEDS GIVEN, MORNING CARE RENDERED. WILL ENDORSE TO DAY SHIFT NURSE FOR JESUS.
--- NOTE | 2017-12-27 07:39 | NUR ---
MS RN OPENING NOTES RECEIVED PATIENT IN STABLE CONDITION. IN NO APPARENT DISTRESS. BEDSIDE RAILS ARE UPX2. BED IS LOCKED AND LOWERED. CALL LIGHT IS WITHIN REACH. IV LINE IS INTACT AND PATENT. WILL CONTINUE TO MONITOR.
[2017-12-27 07:46] LABS: BASOPHILS % (AUTO) 0.8 % (0.0-2.0); EOSINOPHILS % (AUTO) 3.2 % (0.0-6.0); HEMATOCRIT 30 % (39-51); HEMOGLOBIN 9.9 g/dL (13.5-17.5); LYMPHOCYTES # (AUTO) 0.7 /CMM (0.8-4.8); LYMPHOCYTES % (AUTO) 24.1 % (20.0-44.0); MEAN CORPUSCULAR HGB CONC 33 g/dl (31.0-36.0); MEAN CORPUSCULAR VOLUME 84 fL (80-96); MONOCYTES # (AUTO) 0.4 /CMM (0.1-1.30); MONOCYTES % (AUTO) 13.3 % (2.0-12.0); NEUTROPHILS # (AUTO) 1.7 /CMM (1.8-8.9); NEUTROPHILS % (AUTO) 58.6 % (43.0-81.0); PLATELET COUNT (AUTO) 70 /CMM (150-450); RDW COEFFICIENT OF VARIATION 21.4 (11.5-15.0); RED BLOOD CELL COUNT(AUTO) 3.63 MIL/uL (4.5-6.0); WHITE BLOOD COUNT (AUTO) 2.9 K/uL (4.3-11.0)
[2017-12-27 07:55] LABS: CALCIUM, SERUM 7.8 mg/dL (8.5-10.1); CREATININE 1.5 mg/dL (0.6-1.3); MAGNESIUM 1.6 mg/dL (1.8-2.4); POTASSIUM 3.8 mmol/L (3.5-5.1)
[2017-12-27 08:00] VITALS: BP 112/79
[2017-12-27 08:40] LABS: BAND % (MANUAL) 1 % (0.0-5.0); EOSINOPHILS % (MANUAL) 3 % (0-4); LYMPHOCYTES % (MANUAL) 19 % (16-48); MONOCYTES % (MANUAL) 15 % (0-11.0); NEUTROPHILS % (MANUAL) 62 (42-76)
[2017-12-27] MEDS: LACTULOSE 10 G/15 ML UDC (PYXIS) PO SCH ×2 (08:49→16:56)
[2017-12-27] MEDS: FUROSEMIDE 40 MG TABLET PO SCH (08:50)
[2017-12-27] MEDS: SPIRONOLACTONE 25 MG TABLET PO SCH (08:50)
[2017-12-27] MEDS: LACTOBACILLUS RHAMNOSUS GG 1 EACH CAP.SPRINK PO SCH ×2 (08:50→16:56)
[2017-12-27] MEDS ORDERED: Magnesium 1GM/D5W 100ML PREMIX 100 ML IV SCH (11:30)
[2017-12-27] MEDS: SOD FERRIC GLUC 125 MG in IV NS 0.9% 100 ML IV SCH (14:05)
[2017-12-27 16:00] VITALS: BP 104/71
[2017-12-27] MEDS: PANTOPRAZOLE 40 MG VIAL IV SCH (17:01)
--- NOTE | 2017-12-27 18:51 | NUR ---
MS RN CLOSING NOTES PATIENT IS ALERT AND ORIENTED. IN NO APPARENT DISTRESS. BEDSIDE RAILS ARE UPX2. BED IS LOCKED AND LOWERED. ALL NEEDS WERE MET. CALL LIGHT IS WITHIN REACH. IV LINE IS INTACT AND PATENT. WILL ENDORSE CARE TO IT SECURITY CONSULTING DIRECTOR NURSE FOR JESUS.
--- NOTE | 2017-12-27 19:30 | NUR ---
RN NOTES RECEIVED PATIENT IN BED AWAKE. AO X 3, ABLE TO MAKE NEEDS KNOWN. NO ACUTE DISTRESS NOTED. DENIES ANY PAIN AT THIS TIME. IV SITE PATENT, INTACT; FLUSHED. SAFETY REMINDERS GIVEN. ON LOW BED WITH BILATERAL UPPER SIDE RAILS UP. CALL ROY WITHIN EASY REACH. WILL CONTINUE TO MONITOR.
[2017-12-27 20:00] VITALS: BP 110/70
[2017-12-27] MEDS: CEFTRIAXONE 1 G in IV NS 0.9% 50 ML IV SCH (20:45)
[2017-12-27] MEDS: LEVOFLOXACIN (500MG) 500 MG TABLET PO SCH (21:14)
[2017-12-28] MEDS: BLOOD SUGAR DIAGNOSTIC 1 EACH STRIP IN SCH ×4 (06:41→22:02)
--- NOTE | 2017-12-28 06:50 | NUR ---
RN NOTES PATIENT AWAKE, RESPIRATIONS EVEN. DENIES ANY PAIN AT THIS TIME. NPO SINCE MIDNIGHT. NO SYMPTOMS OF HYPER/HYPOGLYCEMIA. DUE MEDS GIVEN WITH NO ASE NOTED. NEEDS ATTENDED. SAFETY PRECAUTIONS AND COMFORT MEASURES IN PLACE. WILL GIVE REPORT TO DAY SHIFT FOR CONTINUITY OF CARE.
--- NOTE | 2017-12-28 07:30 | NUR ---
m/s customs agent: initial assessment received pt in bed awake, a/ox4. for egd today, remains npo since midnight. no c/o pain or any discomfort. instructed to call for assistance. will continue to monitor.
[2017-12-28 07:50] LABS: CALCIUM, SERUM 7.8 mg/dL (8.5-10.1); CREATININE 1.4 mg/dL (0.6-1.3); MAGNESIUM 1.6 mg/dL (1.8-2.4); POTASSIUM 3.9 mmol/L (3.5-5.1)
[2017-12-28 08:00] VITALS: BP_SYST 103; BP_SYST 104; BP_DIAS 66; BP_DIAS 70
[2017-12-28] MEDS: LACTULOSE 10 G/15 ML UDC (PYXIS) PO SCH ×2 (08:01→16:09)
[2017-12-28] MEDS: SPIRONOLACTONE 25 MG TABLET PO SCH (08:01)
[2017-12-28] MEDS: LACTOBACILLUS RHAMNOSUS GG 1 EACH CAP.SPRINK PO SCH ×2 (08:01→16:09)
[2017-12-28] MEDS: FUROSEMIDE 40 MG TABLET PO SCH (08:01)
[2017-12-28] MEDS: Magnesium 1GM/D5W 100ML PREMIX 100 ML IV SCH ×2 (10:48→12:07)
--- NOTE | 2017-12-28 11:00 | NUR ---
m/s lens grinder apprentice: notes pt getting anxious and irritated, stated, "i am getting hungry, when will they do the procedure." f/u made to dr. shanks (department of mathematics chair) re: egd. also called surgery and informed me that he wasn't on schedule at this time. cn made aware. will continue to monitor.
--- NOTE | 2017-12-28 11:30 | NUR ---
m/s manager wound: notes brenda (founder and president) called back and informed me that egd was cancelled with order to put him on a diet. pt made aware. lunch ordered. will continue to monitor.
[2017-12-28] MEDS: INSULIN REGULAR, HUMAN 100 UNIT/ML 3 ML VIAL SQ PRN ×3 (11:44→21:54)
--- NOTE | 2017-12-28 14:00 | NUR ---
m/s bankruptcy law specialist: notes resting comfortable in bed with no distress noted. will continue to monitor.
[2017-12-28 16:00] VITALS: BP 110/60
[2017-12-28] MEDS: SOD FERRIC GLUC 125 MG in IV NS 0.9% 100 ML IV SCH (16:41)
--- NOTE | 2017-12-28 18:00 | NUR ---
m/s sketch maker: notes pt schedule for egd at 0830 tomorrow morning, pt made aware and educated on nothing to eat/drink after midnight, pt verbalizing understanding. needs attended. instructed to call for assistance. will continue to monitor.
[2017-12-28] MEDS: PANTOPRAZOLE 40 MG VIAL IV SCH (18:32)
--- NOTE | 2017-12-28 19:20 | NUR ---
MS/RN NOTES RECEIVED PT. LYING IN BED. PT. IS AWAKE, ALERT AND ORIENTED X4. BREATHING EVEN AND UNLABORED ON ROOM AIR. NO SOB, RESPIRATORY DISTRESS OR COMPLAINTS OF PAIN NOTED AT THIS TIME. PT. WITH LEFT FOREARM 20 GAUGE IV SALINE LOCK PRESENT, PATENT AND INTACT. PER DAYSHIFT NURSE PT. IS TO BE NPO AFTER MIDNIGHT PENDING EGD TOMORROW MORNING. EDUCATED PT. ON CALLING FOR ASSISTANCE. PT. VERBALIZED UNDERSTANDING. BED LOCKED AND IN LOWEST POSITION, SIDE RAILS UP X2, CALL LIGHT WITHIN REACH, WILL CONTINUE TO MONITOR.
[2017-12-28 20:00] VITALS: BP 103/70
[2017-12-28] MEDS: CEFTRIAXONE 1 G in IV NS 0.9% 50 ML IV SCH (20:31)
[2017-12-28] MEDS: LEVOFLOXACIN (500MG) 500 MG TABLET PO SCH (20:31)
[2017-12-29] MEDS: BLOOD SUGAR DIAGNOSTIC 1 EACH STRIP IN SCH ×4 (06:50→21:00)
--- NOTE | 2017-12-29 06:50 | NUR ---
MS/RN NOTES PT. IS SITTING UP IN BED, AWAKE, ALERT AND ORIENTED X4. BREATHING EVEN AND UNLABORED ON ROOM AIR. NO SOB, RESPIRATORY DISTRESS OR COMPLAINTS OF PAIN NOTED AT THIS TIME AND THROUGHOUT SHIFT. PT. WITH LEFT FOREARM 20 GAUGE IV SALINE LOCK PRESENT, PATENT AND INTACT. PT. REMAINS NPO SINCE MIDNIGHT PENDING EGD TODAY. ALL PT. NEEDS MET. BED LOCKED AND IN LOWEST POSITION, SIDE RAILS UP X2, CALL LIGHT WITHIN REACH, WILL ENDORSE TO DAYSHIFT NURSE FOR CONTINUITY OF CARE.
[2017-12-29 07:14] LABS: BASOPHILS % (AUTO) 1.1 % (0.0-2.0); EOSINOPHILS % (AUTO) 2.3 % (0.0-6.0); HEMATOCRIT 29 % (39-51); HEMOGLOBIN 9.6 g/dL (13.5-17.5); LYMPHOCYTES # (AUTO) 0.7 /CMM (0.8-4.8); LYMPHOCYTES % (AUTO) 21.1 % (20.0-44.0); MEAN CORPUSCULAR HGB CONC 34 g/dl (31.0-36.0); MEAN CORPUSCULAR VOLUME 84 fL (80-96); MONOCYTES # (AUTO) 0.5 /CMM (0.1-1.30); NEUTROPHILS # (AUTO) 2.2 /CMM (1.8-8.9); NEUTROPHILS % (AUTO) 62.5 % (43.0-81.0); PLATELET COUNT (AUTO) 92 /CMM (150-450); RDW COEFFICIENT OF VARIATION 20.5 (11.5-15.0); RED BLOOD CELL COUNT(AUTO) 3.43 MIL/uL (4.5-6.0); WHITE BLOOD COUNT (AUTO) 3.5 K/uL (4.3-11.0)
--- NOTE | 2017-12-29 07:40 | NUR ---
OPENING RN MS NOTES RECEIVED PATIENT IN BED, AWAKE ALERT AND ORIENTED X 4 , RESPIRATIONS EVEN AND UNLABORED, NO COMPLAINTS OF PAIN OF DISCOMFORT, NPO STATUS FOR EGD PROCEDURE. LEFT FA 20 GAUGE INTACT, FLUSHED PATENT AND INTACT, NO REDNESS NO INFILTRATION NOTED, SAFETY MEASURES IN PLACE CALL LIGHT KEPT WITHIN REACH , WILL CONTINUE TO MONITOR.
[2017-12-29 07:44] LABS: CALCIUM, SERUM 7.7 mg/dL (8.5-10.1); CREATININE 1.3 mg/dL (0.6-1.3); PHOSPHORUS 3.5 mg/dL (2.5-4.9); POTASSIUM 4.2 mmol/L (3.5-5.1)
[2017-12-29 08:00] VITALS: BP 105/70
--- NOTE | 2017-12-29 08:10 | NUR ---
RN NOTES PATIENT WAS PICKED UP FOR EGD PROCEDURE, LEFT IN STABLE CONDITION V.S WNL, WILL CONTINUE TO MONITOR UPON ARRIVAL BACK TO UNIT.
[2017-12-29 09:22] LABS: EOSINOPHILS % (MANUAL) 1 % (0-4); LYMPHOCYTES % (MANUAL) 18 % (16-48); MONOCYTES % (MANUAL) 7 % (0-11.0); NEUTROPHILS % (MANUAL) 74 (42-76)
--- NOTE | 2017-12-29 10:45 | NUR ---
RN MS NOTES PATIENT BACK IN UNIT, AWAKE ALERT VERBALLY RESPONSIVE, RESPIRATIONS EVEN AND UNLABORED, V.S WNL , NO COMPLAIN OF PAIN OR DISCOMFORT. WILL CONTINUE TO MONITOR
[2017-12-29] MEDS: SPIRONOLACTONE 25 MG TABLET PO SCH (11:20)
[2017-12-29] MEDS: LACTULOSE 10 G/15 ML UDC (PYXIS) PO SCH ×2 (11:20→17:22)
[2017-12-29] MEDS: LACTOBACILLUS RHAMNOSUS GG 1 EACH CAP.SPRINK PO SCH ×2 (11:20→17:23)
[2017-12-29] MEDS: FUROSEMIDE 40 MG TABLET PO SCH (11:20)
[2017-12-29] MEDS: INSULIN REGULAR, HUMAN 100 UNIT/ML 3 ML VIAL SQ PRN ×3 (11:53→21:01)
[2017-12-29] MEDS: SOD FERRIC GLUC 125 MG in IV NS 0.9% 100 ML IV SCH (14:48)
[2017-12-29 16:00] VITALS: BP 100/66
[2017-12-29 18:05] VITALS: BP 105/70
[2017-12-29] MEDS: PANTOPRAZOLE 40 MG VIAL IV SCH (18:55)
--- NOTE | 2017-12-29 19:38 | NUR ---
CLOSING RN MS NOTES PATIENT IN BED, AWAKE ALERT AND ORIENTED X 4 , RESPIRATIONS EVEN AND UNLABORED, NO COMPLAINTS OF PAIN OF DISCOMFORT,. LEFT FA 20 GAUGE INTACT, FLUSHED PATENT AND INTACT, NO REDNESS NO INFILTRATION NOTED, SAFETY MEASURES IN PLACE CALL LIGHT KEPT WITHIN REACH.
[2017-12-29 20:00] VITALS: BP 95/64
--- NOTE | 2017-12-29 20:00 | NUR ---
MS RN NOTE RECEIVED PATIENT IN BED, AWAKE ALERT AND ORIENTED X 4 , RESPIRATIONS EVEN AND UNLABORED, NO COMPLAINTS OF PAIN OF DISCOMFORT. LEFT FA 20 GAUGE INTACT, FLUSHED PATENT AND INTACT, NO REDNESS NO INFILTRATION NOTED, SAFETY MEASURES IN PLACE CALL LIGHT KEPT WITHIN REACH , WILL CONTINUE TO MONITOR.
[2017-12-29] MEDS: LEVOFLOXACIN (500MG) 500 MG TABLET PO SCH (20:51)
[2017-12-29] MEDS: CEFTRIAXONE 1 G in IV NS 0.9% 50 ML IV SCH (20:51)
[2017-12-29 22:00] VITALS: BP 95/64
--- NOTE | 2017-12-30 06:52 | NUR ---
MS RN NOTE PATIENT STABLE. IV SITE INFILTRATED. PLACED NEW IV TO L WRIST #22. BLOOD SUGAR 116. NO COVERAGE NEEDED. WILL ENDORSE TO DAY SHIFT FOR JESUS.
--- NOTE | 2017-12-30 07:40 | NUR ---
OPENING RN MS NOTES RECEIVED PATIENT IN BED, AWAKE ALERT AND ORIENTED X 4 , RESPIRATIONS EVEN AND UNLABORED, NO COMPLAINTS OF PAIN OF DISCOMFORT, LEFT WRIST 22 GAUGE INTACT, FLUSHED PATENT AND INTACT, NO REDNESS NO INFILTRATION NOTED, SAFETY MEASURES IN PLACE CALL LIGHT KEPT WITHIN REACH , WILL CONTINUE TO MONITOR.
[2017-12-30 08:00] VITALS: BP 110/75
[2017-12-30] MEDS: BLOOD SUGAR DIAGNOSTIC 1 EACH STRIP IN SCH ×2 (08:18→12:02)
[2017-12-30] MEDS: SPIRONOLACTONE 25 MG TABLET PO SCH (09:10)
[2017-12-30] MEDS: LACTOBACILLUS RHAMNOSUS GG 1 EACH CAP.SPRINK PO SCH (09:11)
[2017-12-30] MEDS: FUROSEMIDE 40 MG TABLET PO SCH (09:11)
[2017-12-30] MEDS: LACTULOSE 10 G/15 ML UDC (PYXIS) PO SCH (09:11)
--- NOTE | 2017-12-30 10:42 | NUR ---
SW met with pt at bedside to assess for needs and resources. Pt refused homeless [facility] resources. Pt requested resources for clothing, showers, and a [place] bus pass application. Pt requested to be discharged to [address] [address]. Pt was provided with a referral to [facility] in [facility] for clothing and shower resources. Pt was also provided with a hard copy of a [employer] bus pass application in Pan[place]ian. Pt will be provided with a taxi voucher from the hospital to be discharged to [facility] today. Med Surg SAMINA Gracia was notified of pt's discharge plan.
[2017-12-30] MEDS: INSULIN REGULAR, HUMAN 100 UNIT/ML 3 ML VIAL SQ PRN (12:06)
[2017-12-30] MEDS: SOD FERRIC GLUC 125 MG in IV NS 0.9% 100 ML IV SCH (14:00)
--- NOTE | 2017-12-30 14:00 | NUR ---
RN NOTES PATIENT WITH DISCHARGE ORDERS, PICTURES OF SKIN IN CHART, IV ACCESS REMOVED, PATIENT AWAKE ALERT AND VERBALLY RESPONSIVE, ABLE TO MAKE NEEDS KNOWN. WILL CONTINUE TO ASSIST WITH DISCHARGE PROCESS
--- NOTE | 2017-12-30 14:40 | NUR ---
RN NOTES PATIENT AWAKE ALERT AND VERBALLY RESPONSIVE, ABLE TO MAKE NEEDS KNOWN. RESPIRATIONS EVEN AND UNLABORED, DENIES ANY PAIN OR DISCOMFORT AT THIS TIME. PATIENT WITH DISCHARGE ORDERS, ALL DISCHARGE INSTRUCTIONS REVIEWED WITH PATIENT AND SIGNED NOTED WITH VERBAL UNDERSTANDING.PATIENT WILL MAKE FOLLOW UP APPT WITH PMD. IV ACCESS AND ID BAND REMOVED WITH NO ASE NOTED. ALL BELONGINGS ACCOUNTED FOR. PER MD CLEARED FOR DISCHARGED. TAXI VOUCHER PROVIDED, ASSISTED TO LOBBY FOR SAFETY, DISCHARGED IN STABLE CONDITION
== END 2017-12-30 14:45 | disposition home or self-care (01) | DRG 720 ==
LOC: ER 13:49 → MED 17:51 → TELE 18:05 → MED 12-23 09:30
PROVIDERS: ADMIT Nurse Practitioner Acute Care; ATTEND Nurse Practitioner Acute Care
PROC: 0W9G3ZZ Drainage of Peritoneal Cavity, Percutaneous Approach (ICD-10-PCS; 2017-12-22)
PROC: 0W9G3ZZ Drainage of Peritoneal Cavity, Percutaneous Approach (ICD-10-PCS; 2017-12-25)
PROC: 0DB68ZX Excision of Stomach, Via Natural or Artificial Opening Endoscopic, Diagnostic (ICD-10-PCS; principal; 2017-12-29 10:00)
DX: A41.9 Sepsis, unspecified organism (principal); N17.0 Acute kidney failure with tubular necrosis; J69.0 Pneumonitis due to inhalation of food and vomit; E87.2 Acidosis; D61.818 Other pancytopenia; E44.0 Moderate protein-calorie malnutrition; K76.6 Portal hypertension; D68.8 Other specified coagulation defects; D69.59 Other secondary thrombocytopenia; E83.42 Hypomagnesemia; E11.9 Type 2 diabetes mellitus without complications; N39.0 Urinary tract infection, site not specified; K31.89 Other diseases of stomach and duodenum; E87.6 Hypokalemia; D50.9 Iron deficiency anemia, unspecified; R65.20 Severe sepsis without septic shock; K92.2 Gastrointestinal hemorrhage, unspecified; E88.09 Other disorders of plasma-protein metabolism, not elsewhere classified; Z59.0 Homelessness; N40.1 Benign prostatic hyperplasia with lower urinary tract symptoms; Y90.0 Blood alcohol level of less than 20 mg/100 ml; K70.31 Alcoholic cirrhosis of liver with ascites; Z68.25 Body mass index [BMI] 25.0-25.9, adult; R74.0 Nonspecific elevation of levels of transaminase and lactic acid dehydrogenase [LDH]; F10.20 Alcohol dependence, uncomplicated; I10 Essential (primary) hypertension; B95.0 Streptococcus, group A, as the cause of diseases classified elsewhere
CPT/HCPCS: 36415; 49083; 71045-TC; 76942-TC; 80048-TC; 80053-TC; 80061-TC; 80074; 80076-TC; 80202-TC; 81000-TC; 82140-TC; 82272-TC; 82962-TC; 83540-TC; 83605-TC; 83735-TC; 84100-TC; 84484-TC; 85025-TC; 85730-TC; 86850-TC; 87040-TC; 87070-TC; 87081-TC; 87086-TC; 87186-TC; 88305-TC; 88313-TC; 88342; 89051-TC; 93307-TC; A4216; A4606; A6253; A6402; C9113; G0480; J0692; J0696; J1815; J2543; J2704; J2916; J3370; J3475; J3490; J7030; J7050; J7060; P9047; Z7610

== ENCOUNTER 2018-01-31 18:28 | Emergency (ER) | payer MEDICAID ==
[~2018-01-31] VITALS: Ht 167.6 cm; Wt 66.2 kg
[~2018-01-31 18:28] MED LIST: GLIP5TAB13 PO; INSU100V7 SQ; METF-440 PO
[2018-01-31 19:00] LABS: BASOPHILS % (AUTO) 0.8 % (0.0-2.0); HEMATOCRIT 34 % (39-51); HEMOGLOBIN 11.4 g/dL (13.5-17.5); LYMPHOCYTES # (AUTO) 1.5 /CMM (0.8-4.8); LYMPHOCYTES % (AUTO) 29.8 % (20.0-44.0); MEAN CORPUSCULAR HGB CONC 33 g/dl (31.0-36.0); MEAN CORPUSCULAR VOLUME 91 fL (80-96); MONOCYTES # (AUTO) 0.3 /CMM (0.1-1.30); MONOCYTES % (AUTO) 6.4 % (2.0-12.0); NEUTROPHILS # (AUTO) 3.1 /CMM (1.8-8.9); PLATELET COUNT (AUTO) 166 /CMM (150-450); RDW COEFFICIENT OF VARIATION 22.6 (11.5-15.0); RED BLOOD CELL COUNT(AUTO) 3.79 MIL/uL (4.5-6.0); WHITE BLOOD COUNT (AUTO) 5.1 K/uL (4.3-11.0)
--- NOTE | 2018-01-31 19:04 | NUR ---
[id number] C/O ABDOMINAL DISTENSION WITH Hx OF ASCITES. PT STATES LAST PARACENTESIS WAS "ABOUT 1 MONTH AGO". PT DENIES HAVING ANY PAIN. PT IS AAOX3. RESP EVEN AND UNLABORED. SKIN WNL. VSS. NO S/S OF ACUTE DISTRESS NOTED. PT NOTED SLEEPING IN BED. PT SAFETY AND COMFORT MEASURES IN PLACE. PT PLACED ON DIAPER MACHINE TENDER AND POX.
[2018-01-31 19:11] LABS: CALCIUM, SERUM 7.6 mg/dL (8.5-10.1); CREATININE 0.9 mg/dL (0.6-1.3); POTASSIUM 3.9 mmol/L (3.5-5.1)
[2018-01-31 19:19] LABS: BILIRUBIN,DIRECT 0.7 mg/dL (0.0-0.2); BILIRUBIN,TOTAL 1.3 mg/dL (0.2-1.0); TOTAL PROTEIN, SERUM 7.9 g/dL (6.4-8.2)
[2018-01-31 19:23] LABS: INR 1.14 (0.87-1.13)
--- NOTE | 2018-01-31 20:32 | NUR ---
Patient is resting comfortably in bed with eyes closed. Easily aroused. VSS
--- NOTE | 2018-01-31 22:14 | NUR ---
PT RESTING IN BED WITH EYES CLOSED. VSS. NO S/S OF DISTRESS NOTED IN PT. WILL CONTINUE TO MONITOR PT.
--- NOTE | 2018-02-01 01:25 | NUR ---
Patient is resting comfortably in bed with eyes closed. Easily aroused. VSS
--- NOTE | 2018-02-01 04:32 | NUR ---
PT RESTING IN BED WITH SIDE RAILS RAISED. NO S/S OF DISTRESS NOTED. BLANKET PROVIDED TO PT. PT COMFORT AND SAFETY MEASURES IN PLACE. WILL CONTINUE TO MONITOR PT.
--- NOTE | 2018-02-01 05:00 | NUR ---
Patient discharged to home in stable condition. Written and verbal after care instructions given. Patient verbalizes understanding of instruction. Patient is awake and alert to self, day, and place. Patient ambulatory with a steady gait.
[2018-02-01 05:02] VITALS: BP 135/97
== END 2018-02-01 05:03 | disposition home or self-care (01) ==
LOC: ER 18:30
DX: R41.82 Altered mental status, unspecified (principal); F10.129 Alcohol abuse with intoxication, unspecified; R14.0 Abdominal distension (gaseous); I10 Essential (primary) hypertension; E11.9 Type 2 diabetes mellitus without complications; Z60.2 Problems related to living alone; Z79.4 Long term (current) use of insulin; Z79.84 Long term (current) use of oral hypoglycemic drugs
CPT/HCPCS: 36415; 80048-TC; 80076-TC; 83690-TC; 85025-TC; 85730-TC; A4606; G0480; Z7610

== ENCOUNTER 2018-03-29 14:31 | Emergency (ER) | payer MEDICAID ==
[~2018-03-29] VITALS: Ht 165.1 cm; Wt 70.8 kg
[~2018-03-29 14:31] MED LIST changes: -METF-440 PO; +METF500T6 PO
--- NOTE | 2018-03-29 14:50 | NUR ---
BIBRA C/O SOB AND ABDOMINAL ASCITES X 3 DAYS. PATIENT IS AWAKE AND ALERT. NOT IN DISTRESS. SKIN IS WARM TO TOUCH AND NON DIAPHORETIC. PT IS AFEBRILE.VSS. PT WITH HX OF LIVER CIRRHOSIS. LAST PARACENTESIS IS LAST MONTH
--- NOTE | 2018-03-29 14:53 | NUR ---
Janusz addison in [facility] - 03/29/18 at 1453 by JACQUELINE JANINE
[2018-03-29 14:59] LABS: BASOPHILS # (AUTO) 0.1 /CMM (0.0-0.2); BASOPHILS % (AUTO) 1.7 % (0.0-2.0); EOSINOPHILS % (AUTO) 2.3 % (0.0-6.0); HEMATOCRIT 31 % (39-51); HEMOGLOBIN 10.8 g/dL (13.5-17.5); LYMPHOCYTES # (AUTO) 1.1 /CMM (0.8-4.8); LYMPHOCYTES % (AUTO) 27.2 % (20.0-44.0); MEAN CORPUSCULAR HEMOGLOBIN 33 PG (26.0-33.0); MEAN CORPUSCULAR HGB CONC 35 g/dl (31.0-36.0); MEAN CORPUSCULAR VOLUME 94 fL (80-96); MONOCYTES # (AUTO) 0.3 /CMM (0.1-1.30); MONOCYTES % (AUTO) 7.7 % (2.0-12.0); NEUTROPHILS # (AUTO) 2.5 /CMM (1.8-8.9); NEUTROPHILS % (AUTO) 61.1 % (43.0-81.0); PLATELET COUNT (AUTO) 122 /CMM (150-450); RED BLOOD CELL COUNT(AUTO) 3.31 MIL/uL (4.5-6.0); WHITE BLOOD COUNT (AUTO) 4.2 K/uL (4.3-11.0)
--- NOTE | 2018-03-29 15:01 | NUR ---
Patient is resting comfortably in bed with eyes closed. Easily aroused. VSS
[2018-03-29 15:09] LABS: CALCIUM, SERUM 7.4 mg/dL (8.5-10.1); CREATININE 0.8 mg/dL (0.6-1.3); POTASSIUM 3.7 mmol/L (3.5-5.1)
[2018-03-29 15:13] LABS: INR 1.34 (0.85-1.15)
[2018-03-29 15:15] LABS: BILIRUBIN,DIRECT 1.1 mg/dL (0.0-0.2); BILIRUBIN,TOTAL 2.4 mg/dL (0.2-1.0); TOTAL PROTEIN, SERUM 7.1 g/dL (6.4-8.2)
[2018-03-29 17:14] VITALS: BP 136/99
--- NOTE | 2018-03-29 17:15 | NUR ---
IV removed. Catheter intact and site benign. Pressure and 4x4 applied to site. No bleeding noted.
--- NOTE | 2018-03-29 17:21 | NUR ---
IV removed. Catheter intact and site benign. Pressure and 4x4 applied to site. No bleeding noted.
--- NOTE | 2018-03-29 17:23 | NUR ---
Patient discharged to home in stable condition. Written and verbal after care instructions given. Patient verbalizes understanding of instruction.
--- NOTE | 2018-03-29 17:23 | NUR ---
PT. VERBALIZED UNDERSTANDING OF AFTERCARE INSTRUCTIONS.Patient discharged to street in stable condition. Written and verbal after care instructions given. Patient verbalizes understanding of instruction.
== END 2018-03-29 17:15 | disposition home or self-care (01) ==
LOC: ER 14:33
DX: K70.31 Alcoholic cirrhosis of liver with ascites (principal); R06.02 Shortness of breath; I10 Essential (primary) hypertension; E11.9 Type 2 diabetes mellitus without complications; Z60.2 Problems related to living alone; Z98.890 Other specified postprocedural states; Z86.11 Personal history of tuberculosis; Z79.4 Long term (current) use of insulin; Z79.84 Long term (current) use of oral hypoglycemic drugs
CPT/HCPCS: 36415; 49083; 71045-TC; 76942-TC; 80048-TC; 80076-TC; 85025-TC; 85730-TC; A4217; A4606; Z7610